=== PATIENT | male | born 1980 | race Caucasian/White ===

== ENCOUNTER 2017-01-08 00:31 | Emergency (ER) | payer MEDICAID ==
--- NOTE | ~2017-01-08 | ER ---
PATIENT'S NAME: [facility] AGE: 36 Y [address] ROOM: [place] [id number] LOCATION: ED ADMIT DATE: 01/08/2017 ER/Outpatient Report DISCHARGE DATE: 01/08/2017 FAMILY PHYSICIAN: David Blackmon MD ATTENDING PHYSICIAN: Maureen Guallpa Time of Arrival: 0031 hours. Time Seen: 0054 hours. ID: A 36-year-old male. CHIEF COMPLAINT: Lump on scalp. HISTORY OF PRESENT ILLNESS: The patient noted lesion on the right side of his scalp with some swelling and lymphadenopathy tonight. He has pain with this. No itching, no fever or chills, no other systemic symptoms, no other problems or concerns. PAST MEDICAL HISTORY: ALLERGIES: NO KNOWN DRUG ALLERGIES. CURRENT MEDICATIONS: 1. Meloxicam. 2. Escitalopram. 3. Atorvastatin. 4. Lisinopril. 5. Buspirone. 6. KCl. 7. Singulair. 8. Zyrtec. 9. Prilosec. 10. Flonase. 11. Fish oil. 12. Hiram. 13. Ativan. 14. Benadryl. 15. Tylenol. 16. Stool softeners. 17. Duloxetine. 18. Trazodone. 19. Toprol-XL. PATIENT'S NAME: [facility] AGE: 36 Y [address] ROOM: [place] [id number] LOCATION: [facility] ADMIT DATE: 01/08/2017 ER/Outpatient Report DISCHARGE DATE: 01/08/2017 FAMILY PHYSICIAN: David Blackmon MD ATTENDING PHYSICIAN: Maureen Guallpa MEDICAL PROBLEMS: Hypertension, hyperlipidemia, anxiety, PTSD. PRIOR SURGERIES: Cholecystectomy. SOCIAL HISTORY: The patient lives here in [place]. He is . Tobacco use, denies. Alcohol use, denies. Drug use, occasional marijuana. REVIEW OF SYSTEMS: All systems reviewed and negative other than what is noted in the HPI. No pertinent family history. PHYSICAL EXAMINATION: VITAL SIGNS: Height 6 feet 2 inches; weight 121.5 kg; blood pressure 182/124, recheck 180/112, which he said is where his baseline is with his anxiety; pulse 89; respirations 16; temperature 97.7; sats 93% on room air. GENERAL: A 36-year-old male in no acute distress. HEENT: Head normocephalic. The patient has an erythematous lesion to his right high parietal scalp, approximately dime-size with some surrounding erythema, no drainage, tender to palpation. He has a little bit of surrounding tenderness and he has a right occipital lymph node that is tender to palpation and enlarged. Ears: TMs translucent, AU. Eyes: Pupils equal and reactive to light and accommodation. Extraocular movements intact. Nose: Mucosa pink, no lesions or drainage. Mouth: No lesions, pharynx benign. NECK: Supple. No lymphadenopathy. No nuchal rigidity. LUNGS: Clear to auscultation. Breath sounds are equal. No rhonchi, wheezes, or rales. HEART: Regular rate and rhythm. ABDOMEN: Soft, nondistended, nontender. SKIN: [place], warm, and dry. No other lesions are noted other than the left posterior hairline. He does have an other smaller erythematous lesion. IMPRESSION AND PLAN: 1. Cellulitis of the right high parietal scalp with lymphadenopathy. 2. Hypertension. Wound care was discussed. The patient was given Keflex 500 mg p.o. here and will be started on 500 mg t.i.d. for 7 days. Follow up if increase in pain, redness, fever, chills, problems or concerns. For his hypertension, the patient states that he is going to counseling as his anxiety and posttraumatic stress disorder is playing a role in his poorly-controlled hypertension. He has no other symptoms as far as no chest pain, no headache, no numbness or tingling. He will continue his current antihypertensive use, counseling, and follow up with Dr. Blackmon in PATIENT'S NAME: OPHELIA NICKERSON [facility] AGE: 36 Y [address] ROOM: [place] [address] LOCATION: [facility] ADMIT DATE: 01/08/2017 ER/Outpatient Report DISCHARGE DATE: 01/08/2017 FAMILY PHYSICIAN: David Blackmon MD ATTENDING PHYSICIAN: Maureen Guallpa 1-7 days. He will follow up sooner if any problems or concerns. Both he and his understand and agree, and all questions have been answered. MD Nancy DELGADO /[id number] d: 01/08/17 0210 t: 01/08/17 0311, OUTPATIENT REPORT
== END 2017-01-08 01:15 | disposition disaster alternative care site (69) ==
LOC: GMED 00:31
DX: L03.811 Cellulitis of head [any part, except face] (principal); R59.0 Localized enlarged lymph nodes; I10 Essential (primary) hypertension; E78.5 Hyperlipidemia, unspecified; F41.9 Anxiety disorder, unspecified; F43.10 Post-traumatic stress disorder, unspecified; Z90.49 Acquired absence of other specified parts of digestive tract; Z79.899 Other long term (current) drug therapy